=== PATIENT | male | born 1945 | race Caucasian/White ===

== ENCOUNTER → 2020-08-18 08:32 | Outpatient (CLI) | payer MEDICARE, SELFPAY ==
--- NOTE | ~2020-08-18 | CT_ITS ---
EXAMINATION: CT lumbar spine wo con DATE: 08/18/2020 08:55 INDICATION: Low back pain. Right-sided sciatica. TECHNIQUE: Computed tomography (CT) of the lumbar spine was performed without intravenous contrast. A utomated exposure control and iterative reconstruction technique were employed. The dose-length produ ct was 888.10 mGy-cm. COMPARISON: Lumbar spine MRI 04/23/2019 FINDINGS: There is 3 degrees levocurvature of lumbar spine. Vertebral body heights are normal. There is mildly decreased disc height at L4-L5 with vacuum disc phenomenon. There is mildly decreased disc height at L5-S1. Epidural electrodes are noted in thoracic spine. The following disc levels are speci fically discussed: L1-L2: The disc does not extend beyond the endplate margin. There is mild bilateral facet joint osteo arthritis. There is no neural foraminal stenosis. There is no central canal stenosis. L2-L3: The disc is mildly bulging. There is mild bilateral facet joint osteoarthritis. There is mild bilateral neural foraminal stenosis. There is no central canal stenosis. L3-L4: The disc is bulging. There is mild bilateral facet joint osteoarthritis. There is mild bilater al neural foraminal stenosis. There is mild central canal stenosis. L4-L5: The disc is bulging. There is moderate bilateral facet joint osteoarthritis. There is hypertro phy of the ligamentum flavum. There is moderate bilateral neural foraminal stenosis. There is moderat e central canal stenosis. L5-S1: The disc is bulging. There is severe bilateral facet joint osteoarthritis. There is moderate b ilateral neural foraminal stenosis. There is mild central canal stenosis. IMPRESSION: 1. Moderate lumbar spondylosis, stable from 04/23/2019. Reviewed, dictated and finalized at location A.
== END ==
PROVIDERS: PCP Family Medicine Adolescent Medicine; Visit Provider Family Medicine Adolescent Medicine
DX: M54.40 Lumbago with sciatica, unspecified side (principal); M47.896 Other spondylosis, lumbar region
CPT/HCPCS: 72131

== ENCOUNTER → 2023-09-16 08:41 | Outpatient (CLI) | payer MEDICARE, SELFPAY ==
--- NOTE | ~2023-09-16 | CT_ITS ---
Noncontrast CT scan of the lumbar spine CLINICAL HISTORY: Right sciatica TECHNIQUE: Axial noncontrast imaging of the lumbar spine was performed. Sagittal and coronal reformat kim images were constructed. Dose reduction technique was used on this scan by utilizing automated ex posure control and iterative reconstruction technique. The dose-length product (DLP) was 839.59 mGy-c m. COMPARISON: 08/18/2020 FINDINGS: There is no fracture or subluxation of the lumbar spine. Vertebral bodies maintain normal h eight and alignment. No destructive lesion seen. At L1-L2, there is no disc bulge or herniation. No spinal canal stenosis or definite neural foraminal narrowing. At L2-L3, there is mild disc bulge. No maisha central canal stenosis. Neural foramina are preserved. At L3-L4, there is mild disc bulge. No definite central canal stenosis or neural foraminal narrowing. At L4-L5, there is advanced degenerative disc narrowing. Disc bulge and facet arthropathy result in m oderate to possibly severe central canal stenosis/thecal sac compression. There is probable severe bi lateral neural foraminal narrowing. At L5-S1, there is advanced degenerative disc narrowing. There is mild disc bulge with severe facet a rthropathy. No definite central canal stenosis. There is severe bilateral neural foraminal narrowing. Paravertebral soft tissues are unremarkable. Impression: Severe degenerative spondylosis at L4-L5 and L5-S1, as detailed above. Reviewed, dictated and finalized at location . PREVENTION LEAD Impression: Severe degenerative spondylosis at L4-L5 and L5-S1, as detailed above.
== END ==
PROVIDERS: PCP Family Medicine Adolescent Medicine; Visit Provider Family Medicine Adolescent Medicine
DX: M54.31 Sciatica, right side (principal); M48.061 Spinal stenosis, lumbar region without neurogenic claudication; M47.896 Other spondylosis, lumbar region; M47.897 Other spondylosis, lumbosacral region
CPT/HCPCS: 72131

== ENCOUNTER 2023-11-20 09:13 | Outpatient (CLI) | payer MEDICARE, SELFPAY ==
--- NOTE | ~2023-11-20 | XR_ITS ---
XR chest 2V DATE: 11/20/2023 09:27 INDICATION: Dyspnea TECHNIQUE: 2 views COMPARISON: 03/21/2009 two-view chest FINDINGS: Compared to 03/21/2009 there is mild prominence of the minor fissure, mild blunting of both c ostophrenic angles and mild infiltrate or atelectasis in the lung bases. Heart size appears within normal limits. Is aortic arch calcification and mild aortic unfolding. No hilar or mediastinal enlargement is evident. Lower back battery pack with neurotransmitter leads overlying the posterior lower thoracic spinal can al. IMPRESSION: Mild infiltrate or atelectasis in the lung bases and small pleural effusions Interval placement of posterior thoracic spinal canal neurotransmitter lead since 03/21/2009 Reviewed, dictated and finalized at location L. CHECKER IMPRESSION: Mild infiltrate or atelectasis in the lung bases and small pleural effusions Interval placement of posterior thoracic spinal canal neurotransmitter lead sin ce 03/21/2009
== END 2023-11-20 09:14 ==
LOC: MICIMG 09:16
PROVIDERS: PCP Nurse Practitioner Family; Visit Provider Nurse Practitioner Family
DX: R06.00 Dyspnea, unspecified (principal); Z77.090 Contact with and (suspected) exposure to asbestos; R91.8 Other nonspecific abnormal finding of lung field
CPT/HCPCS: 71046

== ENCOUNTER 2023-12-10 12:43 | Outpatient (CLI) | payer MEDICARE, SELFPAY ==
--- NOTE | 2023-12-11 08:38 | WPDPFTINT ---
PFT Procedure Performed PFT Procedure Performed Spirometry with Pre/Post Bronchodilator Plethysmography (Lung Vol) Diffusing Cap (DLCO) Flow Vol Loop PFT Interpretation Lung volumes were measured with the body plethysmography method. The diminished expiratory reserve volume is related to severe obesity. The remaining lung volumes are unremarkable. Spirometry showed normal expiratory flow rates and a normal FEV1 to FVC ratio 72%. Following administration of a bronchodilator there was no significant increase in the expiratory flow rates. Lung diffusion capacity is moderately reduced at 58% predicted. The diminished lung diffusion capacity paired with a low alveolar volume and normal DLCO/VA ratio may suggest loss of alveolar capillary structure as occurs in early emphysema or interstitial lung disease. Clinical correlation advised. The flow-volume loop is unremarkable. Impression: Spirometry and lung volumes within the normal range. Moderately reduced lung diffusion capacity.
== END 2023-12-10 12:44 | disposition home or self-care (01) ==
LOC: ANHPFT 12:44
PROVIDERS: PCP Nurse Practitioner Family; Visit Provider Nurse Practitioner Family
DX: R06.00 Dyspnea, unspecified (principal); Z77.090 Contact with and (suspected) exposure to asbestos
CPT/HCPCS: 94060; 94726; 94729

== ENCOUNTER 2024-03-04 08:25 | Outpatient (CLI) | payer MEDICARE, SELFPAY ==
--- NOTE | ~2024-03-04 | NM_ITS ---
EXAMINATION: NM cuate stress w perfusion DATE: 03/04/2024 12:08 INDICATION: Chest pain TECHNIQUE: Rest images were obtained following intravenous administration of 9.8 mCi Tc99m tetrofosmi n (Myoview). The patient was infused intravenously with Lexiscan (Regadenoson). Then, 30.0 mCi Tc99m tetrofosmin (Myoview) was administered intravenously, and stress images were obtained. Data was recon structed into short axis and horizontal and vertical long axis SPECT images. Gated SPECT images were also obtained. COMPARISON: None. FINDINGS: There is no definite reversible or fixed perfusion abnormality to suggest ischemia or infar ction. There is normal left ventricular chamber size, wall motion and ejection fraction. Left ventr icular ejection fraction measures 70%. IMPRESSION: 1. Normal myocardial perfusion at rest and during stress. 2. Left ventricular ejection fraction measuring 70%. Reviewed, dictated and finalized at location A.
[2024-03-04] MEDS: PERFLUTREN LIPID MICROSPHERES 1.5 ML VIAL DILUTED TO 10 ML TOTAL VOLUME IV PUSH (08:30)
--- NOTE | 2024-03-04 08:35 | ECHO_ITS ---
Patient Info Name: Evan Mcleod Age: 78 years : 1945 Gender: Male Ht: 66 in Wt: 280 lbs BSA: 2.50 m2 HR: 96 bpm BP: 145 / 84 mmHg Technical Quality: Poor Exam Date: 03/04/2024 8:57 AM Exam Location: Echo Lab Patient Status: Outpatient Admit Date: 03/04/2024 Staff Ordering Physician: Carlton Miller DO Food Service Clerk: Yang Choi RDCS Attending Provider: Carlton Miller DO Referring Physician: Paul AGUILAR; Exam Type: CA echo dop color flow w con Study Info Indications R06.09 - Other forms of dyspnea Complete two-dimensional, color flow and Doppler transthoracic echocardiogram is performed with contrast to opacify the left ventricle and to improve the deliniation of the left ventricle endocardial borders. Contrast/Agitated Saline Contrast/Ag. Saline: Definity Amount: 2.00 ml Reason for Poor Study: patient body habitus Summary 1. Definity contrast administered improved wall motion interpretation. 2. Left ventricular chamber dimension is normal. 3. Left ventricular systolic function is normal, estimated at 60-65%. 4. The left ventricular diastolic function is grade I diastolic dysfunction. 5. E/e' 13 is mildly elevated. 6. Left atrial chamber dimension is moderately enlarged. 7. Right atrial chamber dimension is mildly enlarged. 8. There is mild aortic valve sclerosis. 9. There is trace mitral valve regurgitation. 10. There is mild tricuspid valve regurgitation. 11. No pulmonary hypertension, estimated pulmonary arterial systolic pressure is 38 mmHg. Left Ventricle Definity contrast administered improved wall motion interpretation. E/e' 13 is mildly elevated. Left ventricular chamber dimension is normal. Left ventricular systolic function is normal, estimated at 60-65%. The left ventricular diastolic function is grade I diastolic dysfunction. Right Ventricle Right ventricular systolic function is normal and with normal TAPSE 2.7 cm. Right ventricular chamber dimension is normal. Left Atria Left atrial chamber dimension is moderately enlarged. Right Atria Right atrial chamber dimension is mildly enlarged. Aortic Valve The aortic valve is trileaflet. There is mild aortic valve sclerosis. There is no aortic valve stenosis. There is no aortic valve regurgitation. Pulmonic Valve There is no pulmonic regurgitation. Mitral Valve There is no mitral valve stenosis. There is trace mitral valve regurgitation. Tricuspid Valve No pulmonary hypertension, estimated pulmonary arterial systolic pressure is 38 mmHg. There is mild tricuspid valve regurgitation. Pericardium/Pleural There is no pericardial effusion. Inferior Vena Cava Normal inferior vena cava with >50% collapse upon inspiration consistent with normal right atrial pressure, 5 mmHg. Aorta The aortic root size at the sinus of Valsalva is normal. Tricuspid Valve Name Value Normal Estimated PAP/RSVP RA Pressure 5 mmHg <=5 Report Signatures
--- NOTE | 2024-03-04 10:04 | IVDEFINITY ---
Prior to administration of IV Definity the patient was educated on the risks and benefits of the imaging enhancing agent including potential adverse side effects. The patient verbalized understanding. Allergies were verified. No exclusion criteria were identified and at least one of the following inclusion criteria were met: 1) physician request, 2) patient technically difficult to image (per the [place] [employer] guidelines of two or more segments not discernable within the apical view), or 3) questionable left ventricular function. ?
--- NOTE | 2024-03-04 10:16 | EST_ITS ---
Patient Info Name: Evan Mcleod Age: 78 years : 1945 Gender: Male Ht: 66 in Wt: 280 lbs BSA: 2.50 m2 HR: 73 bpm BP: 158 / 71 mmHg Heart Rhythm: Sinus Rhythm Exam Date: 03/04/2024 11:08 AM Exam Location: Echo Lab Patient Status: Outpatient Admit Date: 03/04/2024 Staff Ordering Physician: Carlton Miller DO Attending Provider: Carlton Miller DO Exercise Technologist: Francheska Hernández CT Exercise Physician: Carlton Miller DO Exam Type: CA stress cuate w NM Study Info Indications R06.09 - Other forms of dyspnea A regadenoson stress test was performed. Summary 1. 1. Negative lexiscan stress test for ischemic ST changes by ECG criteria. 2. 2. Baseline hypertension. 3. 3. Nuclear scan to follow and will be reported separately. Please correlate with it. 4. 4. Patient informed of the above results. Protocol: Lexiscan Stress ECG Details Stage: REST Duration (min): 3 min : 2 sec HR (bpm): 77 SBP (mmHg): 158 DBP (mmHg): 71 Stage: REST Duration (min): 16 min : 55 sec HR (bpm): 73 SBP (mmHg): 158 DBP (mmHg): 71 Stage: STAGE 1 Duration (min): 0 min : 59 sec HR (bpm): 79 SBP (mmHg): 158 DBP (mmHg): 71 Stage: RECOVERY Duration (min): 1 min : 0 sec HR (bpm): 81 SBP (mmHg): 204 DBP (mmHg): 55 Stage: RECOVERY Duration (min): 2 min : 0 sec HR (bpm): 82 SBP (mmHg): 204 DBP (mmHg): 55 Stage: RECOVERY Duration (min): 3 min : 0 sec HR (bpm): 79 SBP (mmHg): 204 DBP (mmHg): 55 Stage: RECOVERY Duration (min): 3 min : 25 sec HR (bpm): 79 SBP (mmHg): 152 DBP (mmHg): 62 Rest HR: 73 bpm Peak HR: 82 bpm Rest Sys BP: 158 mmHg Peak Sys BP: 204 mmHg Max Pred HR: 144 bpm % Max Pred HR: 57 % Target HR: 122 bpm Max RPP: 16,728 bpm*mmHg Termination Reason: Completed protocol Cardiac Symptoms: Shortness of breath Total Time: 1 min : 0 sec Rest Granados BP: 71 mmHg Peak Granados BP: 55 mmHg Total Dose: 0.4 mg Resting ECG Sinus rhythm. Stress ECG No ST changes. Arrhythmias None. Report Signatures
== END 2024-03-04 08:26 | disposition home or self-care (01) ==
LOC: ANHCARD 08:26
PROVIDERS: PCP Nurse Practitioner Family; Visit Provider Internal Medicine Cardiovascular Disease
DX: R06.09 Other forms of dyspnea (principal); I35.8 Other nonrheumatic aortic valve disorders; I36.1 Nonrheumatic tricuspid (valve) insufficiency; I11.9 Hypertensive heart disease without heart failure
CPT/HCPCS: 78452; 93017; A9502; C8929; J2785; Q9957

== ENCOUNTER → 2025-01-05 11:21 | Outpatient (CLI) | payer MEDICARE, SELFPAY ==
--- NOTE | ~2025-01-05 | XR_ITS ---
Clinical Indication: Cough PA and lateral views of the chest: Comparison: 11/20/2023 Findings: Probable mild bibasilar pulmonary edema pattern, left worse than right. No pleural effusion . Cardiomediastinal silhouette is within normal limits. Bones and soft tissues are unremarkable. Impression: Probable mild bibasilar pulmonary edema pattern, left worse than right. Correlate clinically for pneu monia. Reviewed, dictated and finalized at location M. Impression: Probable mild bibasilar pulmonary edema pattern, left worse than right. Correla te clinically for pneumonia.
== END ==
LOC: EXPCRAD 11:25
PROVIDERS: PCP Nurse Practitioner Family; Visit Provider Nurse Practitioner Family
DX: R06.00 Dyspnea, unspecified (principal); R05.9 Cough, unspecified
CPT/HCPCS: 71046